=== PATIENT | female | born 1950 | race Caucasian/White ===

== ENCOUNTER 2017-09-18 19:30 | Outpatient (CLI) | payer MEDICARE, OTHER | END 2017-09-18 19:31 | disposition home or self-care (01) | LOC: SLEEPLAB 19:30 | PROVIDERS: ATTEND Internal Medicine | DX: G47.33 Obstructive sleep apnea (adult) (pediatric) (principal); I10 Essential (primary) hypertension; G47.00 Insomnia, unspecified | CPT/HCPCS: 95810 ==

== ENCOUNTER 2023-09-19 07:41 | Outpatient (CLI) | payer MEDICARE, OTHER | END 2023-09-19 07:42 | disposition home or self-care (01) | LOC: LABBT 07:41 | PROVIDERS: ATTEND Surgery | DX: Z01.818 Encounter for other preprocedural examination (principal); K80.20 Calculus of gallbladder without cholecystitis without obstruction | CPT/HCPCS: 80076; 85025; 93005; 93010 ==

== ENCOUNTER 2023-09-21 06:34 | Day surgery (SDC) | payer MEDICARE, OTHER ==
[2023-09-19 08:22] VITALS: BMI 27.2
[2023-09-21] MEDS ORDERED: cefOXitin 2 GM VIAL ONE (07:13)
[2023-09-21] MEDS ORDERED: Lidocaine 1% MPF 2 ML VIAL ONE (07:13)
[2023-09-21] MEDS ORDERED: Sodium Chloride 0.9% 100 ML ONE (07:13)
[2023-09-21 07:55] LABS: Anion Gap 19 mmol/L (10-20); BUN (Urea Nitrogen) 24 mg/dL (9.8-20.1); Calc. Creatinine Clearance 52 mL/min (70-130); Calcium 9.7 mg/dL (7.8-10.44); Carbon Dioxide 20 mmol/L (23-31); Chloride 106 mmol/L (98-107); Estimated GFR 42; Glucose 111 mg/dL (83-110); Potassium 4.5 mmol/L (3.5-5.1); Sodium 140 mmol/L (136-145)
[2023-09-21] MEDS ORDERED: Indocyanine Green 25 MG/10 ML VIAL ONE (08:18)
[2023-09-21] MEDS ORDERED: EPINEPHrine 1 MG/ML VIAL ONE (08:18)
[2023-09-21] MEDS ORDERED: Bupivacaine 0.25% HCL 30 ML VIAL ONE (08:18)
[2023-09-21] MEDS ORDERED: Lidocaine 1% PF 5 ML VIAL ONE (08:21)
[2023-09-21] MEDS ORDERED: fentaNYL PF 100 MCG/2 ML SYRINGE ONE ×2 (08:21→10:12)
[2023-09-21] MEDS ORDERED: Rocuronium Bromide 10 MG/ML (10ML VIAL) ONE (08:21)
[2023-09-21] MEDS ORDERED: PROPOFOL 20 ML ONE (08:21)
[2023-09-21] MEDS ORDERED: PHENYLEPHRINE-NS 100 MCG/ML 10 ML SYRINGE ONE (09:19)
[2023-09-21] MEDS ORDERED: Dexamethasone 4 mg/ml Vial ONE (09:33)
[2023-09-21] MEDS ORDERED: Ondansetron PF 4 MG/2 ML Vial ONE (09:33)
[2023-09-21] MEDS ORDERED: SUGAMMADEX SODIUM 200 MG/2 ML VIAL ONE (09:48)
== END 2023-09-21 12:40 | disposition home or self-care (01) ==
LOC: SDC 06:34
PROVIDERS: ATTEND Surgery
PROC: 0FT44ZZ Resection of Gallbladder, Percutaneous Endoscopic Approach (ICD-10-PCS; principal; 2023-09-21)
DX: K80.10 Calculus of gallbladder with chronic cholecystitis without obstruction (principal); E78.5 Hyperlipidemia, unspecified; I10 Essential (primary) hypertension; K21.9 Gastro-esophageal reflux disease without esophagitis; E78.00 Pure hypercholesterolemia, unspecified; Z90.710 Acquired absence of both cervix and uterus; Z79.890 Hormone replacement therapy; Z88.8 Allergy status to other drugs, medicaments and biological substances; Z88.0 Allergy status to penicillin; Z79.899 Other long term (current) drug therapy
CPT/HCPCS: 47562; 80048; C1889; J0171; 88304; J0665; J0694; J1100; J2405; J2704; J3490